=== PATIENT | male | born 1990 ===

== ENCOUNTER 2020-11-26 19:48 | Emergency (ER) | payer BC ==
[2020-11-26] MEDS ORDERED: TETANUS & DIPHTHERIA TOX,ADULT 0.5 ML VIAL ONE (20:18)
[2020-11-26] MEDS ORDERED: ACETAMINOPHEN 500 MG TAB ONE (20:18)
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
--- NOTE | 2020-11-26 20:55 | RAD REPORT ---
EXAM DESCRIPTION: Lia Single View11/26/2020 8:29 pm CLINICAL HISTORY: Chest pain COMPARISON: none FINDINGS: The lungs appear clear of acute infiltrate. The heart is normal size IMPRESSION: No acute abnormalities displayed
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
--- NOTE | 2020-11-26 21:07 | RAD REPORT ---
EXAM DESCRIPTION: RAD - Scapula Left - 11/26/2020 8:29 pm CLINICAL HISTORY: Left shoulder pain FINDINGS: A lucency lies within the superior aspect of the scaphoid glenoid. This is suspicious for a fracture. No dislocation noted
[2020-11-26] MEDS ORDERED: ONDANSETRON 4 MG/2 ML VIAL ONE (21:49)
[2020-11-26] MEDS ORDERED: FENTANYL CITR 100 MCG/2 ML ONE (21:49)
[2020-11-26 21:54] LABS: Absolute Lymphocytes (CBC) 1.5 K/uL (0.7-4.9); Basophils % 0.3 % (0-1.3); Hematocrit 39.5 % (39.6-49.0); Lymphocytes % 13.8 % (15.3-44.8); MPV 8.7 fL (7.6-11.3); RBC Red Blood Cell Count 4.47 M/uL (4.33-5.43)
[2020-11-26 22:11] LABS: Potassium 4.4 mmol/L (3.5-5.1)
[2020-11-26 22:32] LABS: Protime INR 1.01
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
[2020-11-26 23:48] VITALS: BP 121/81; TEMP 98.9; O2SAT 100
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
== END 2020-11-26 23:44 | disposition home or self-care (01) ==
LOC: EDSEX 19:48 → ER 19:48
PROC: 0JQ00ZZ Repair Scalp Subcutaneous Tissue and Fascia, Open Approach (ICD-10-PCS; principal; 2020-11-26)
DX: S01.01XA Laceration without foreign body of scalp, initial encounter (principal); S22.32XA Fracture of one rib, left side, initial encounter for closed fracture; Y04.2XXA Assault by strike against or bumped into by another person, initial encounter; Y93.9 Activity, unspecified; Y92.149 Unspecified place in prison as the place of occurrence of the external cause; Z23 Encounter for immunization
CPT/HCPCS: 85025; 80048; 36415; 86900; 86850; 85610; 86901; 85730; 70450; 72125; 71260; 70486; 76377; 74177; 71045; 73010; 90471; 90714; 96375; 96374; 99284; 12001; Q9967; J2405; J3010